=== PATIENT | female | born 1955 | race Caucasian/White ===

== ENCOUNTER → 2017-05-05 | Outpatient (REF) | payer OTHER | LOC: M SFHCLUC 05-06 11:26 | DX: R30.0 Dysuria (principal) ==

== ENCOUNTER 2017-11-29 11:35 | Day surgery (SDC) | payer OTHER ==
[2017-11-29] MEDS: NS 1,000 ML IV (13:13)
[2017-11-29] MEDS ORDERED: PROPOFOL 200 MG/20 ML VIAL As Ordered (13:55)
[2017-11-29] MEDS ORDERED: LIDOCAINE 2% INJ 100 MG/5 ML SDV (FOR ANES.) As Ordered (13:55)
== END 2017-11-29 15:24 | disposition home or self-care (01) ==
LOC: M OPP 11:35
DX: R10.13 Epigastric pain (principal); R12 Heartburn; K21.9 Gastro-esophageal reflux disease without esophagitis; K31.7 Polyp of stomach and duodenum; M85.80 Other specified disorders of bone density and structure, unspecified site; Z88.0 Allergy status to penicillin; Z88.3 Allergy status to other anti-infective agents; Z88.1 Allergy status to other antibiotic agents; Z88.8 Allergy status to other drugs, medicaments and biological substances; Z91.048 Other nonmedicinal substance allergy status; Z79.899 Other long term (current) drug therapy
CPT/HCPCS: 43239

== ENCOUNTER → 2018-09-21 | Outpatient (REF) | payer OTHER ==
[~2018-09-21] MED LIST: CENTCHW4 PO; OMEP40CA2 PO; VITATAB11 PO; ZYRT10CA5 PO; [UNRECOGNIZED DRUG - CODE] PO
== END ==
LOC: M LAB LCGH 11:12
DX: Z12.72 Encounter for screening for malignant neoplasm of vagina (principal)

== ENCOUNTER → 2019-03-16 | Outpatient (CLI) | payer OTHER ==
[~2019-03-16] MED LIST changes: -OMEP40CA2 PO; +OMEP40CA97 PO
--- NOTE | 2019-03-16 13:40 | REP ---
Two-view chest: 03/16/2019. Indication: Cough. Bronchitis. Comparison: None. Findings: The lungs are hyperinflated with leveling of the diaphragms. There is no air space consolidation. No pleural effusion or pneumothorax is present. The cardiomediastinal silhouette is unremarkable. Impression: No acute cardiopulmonary process. Findings suggestive of early COPD. Please correlate with pulmonary functions. Electronically Signed by Stuart Quan DO 03/16/2019 01:31 P
== END ==
LOC: M LRY 13:07
PROVIDERS: ATTEND Internal Medicine Cardiovascular Disease
DX: J42 Unspecified chronic bronchitis (principal)

== ENCOUNTER → 2020-03-12 | Outpatient (CLI) | payer SELFPAY | LOC: M LABCAHC 13:35 | PROVIDERS: ATTEND Pediatrics | DX: Z11.59 Encounter for screening for other viral diseases (principal) ==